=== PATIENT | male | born 1985 | race Caucasian/White ===

== ENCOUNTER 2020-06-11 10:56 | Outpatient (REF) | payer SELFPAY | END 2020-06-11 10:57 | disposition home or self-care (01) | LOC: HO.LAB 10:56 | PROVIDERS: Visit Provider Internal Medicine | DX: Z20.828 Contact with and (suspected) exposure to other viral communicable diseases (principal) | CPT/HCPCS: C9803; U0003 ==

== ENCOUNTER 2025-01-29 21:50 | Emergency (ER) | payer MEDICAID, SELFPAY ==
--- NOTE | ~2025-01-29 | XR_ITS ---
CLINICAL HISTORY: pain, fall 3 view, pelvis and right hip Comparison: None provided Findings: The bones are intact. The soft tissues are unremarkable. IMPRESSION: No acute findings. This document has been electronically signed by: Aftab Jain MD on 01/30/2025 01:39:28
--- NOTE | ~2025-01-29 | XR_ITS ---
CLINICAL HISTORY: pain fall 4 view right shoulder Comparison: None provided Findings: Bones intact. No dislocations. No erosions. No radiopaque foreign body. IMPRESSION: 1. No acute findings This document has been electronically signed by: Aftab Jain MD on 01/29/2025 22:45:06
[2025-01-29 21:55] VITALS: BP 125/66; PULSE 86; RESP 20; TEMP 36.6; O2SAT 97; BMI 27.3
[2025-01-29 22:43] LABS: MANUAL DIFF FLAG NO
[2025-01-29 22:45] LABS: Hematocrit 43.0 % (42.0-52.0); Hemoglobin 15.3 g/dl (14.0-18.0); Imm Gran Abs Auto 0.01 X10*3/uL (0.00-0.03); Imm Gran Pct Auto 0.2 % (0.0-0.4); Lymphocytes Absolute Auto 1.6 X10*3/uL (1.2-4.9); Mean Corpuscular HGB Conc 35.6 g/dl (31.0-36.0); Mean Corpuscular Hemoglobin 31.7 pg (27.0-33.0); Mean Corpuscular Volume 89.2 fL (80.0-98.0); NRBC Abs Auto 0.000 X10*3/uL (0.0-0.012); NRBC Pct Auto 0.0 /100WBC (0.0-0.2); Platelet Count 178 X10*3/uL (160-400); Red Blood Count 4.82 X10*6/uL (4.60-5.80); White Blood Count 4.7 X10*3/uL (4.8-10.8)
[2025-01-29 22:46] LABS: Appearance Urine Clear; Glucose Urine UA >=1000 mg/dL (Negative); PH 5.0 (5.0-9.0); Specific Gravity - Urine >= 1.030 (1.005-1.025); UMIC TRIGGER UACC YES
[2025-01-29 23:07] LABS: Alanine Aminotransferase 25 U/L (0-40); Albumin Level 4.0 g/dL (3.5-5.0); Alkaline Phosphatase 102 U/L (39-117); Anion Gap 14 (12-20); Aspartate Amino Transferase 14 U/L (5-37); Blood Urea Nitrogen 17 mg/dL (9-16); Calcium 9.1 mg/dL (8.4-10.2); Carbon Dioxide 22 mmol/L (22-29); Chloride 99 mmol/L (96-108); Creatinine Clr Calc Pharmacy 107.8; Estimated Glomerular Filt Rate > 60; Lipase 67 U/L (8-78); Potassium 4.1 mmol/L (3.3-5.1); Sodium 131 mmol/L (135-145); Total Protein 6.9 g/dL (6.5-8.0)
[2025-01-29 23:55] VITALS: BP 116/81; PULSE 70; RESP 18; TEMP 36.5; O2SAT 96
--- NOTE | 2025-01-29 23:59 | PC.NURSE ---
Patient stating he fell yesterday playing basketball with his son, contusion on right hip noted. Patient also has a complaint of right shoulder pain but it is lesser than hip. Hip mostly hurts while sitting down, especially on toliet. Pain level is noted to be 8/10. t resting comfortably in stretcher, RR even unlabored, even chest rise and fall. Awaiting provider for plan of care. Call rios in reach, able to make needs known. Previous ambulated to bathroom with a steady gait. Alert and oriented x 4.
--- NOTE | 2025-01-30 00:11 | PC.NURSE ---
Asked patient if he has any dx of DM, he states he does not.
[2025-01-30 00:51] LABS: Glucose, Whole Blood 460 mg/dL (60-115)
[2025-01-30 01:35] VITALS: BP 129/80; PULSE 71; RESP 17; TEMP 36.7; O2SAT 98
--- NOTE | 2025-01-30 01:42 | ED.GENADULT ---
HPI - General Adult General Chief complaint: Back Pain/Injury Stated complaint: fell yesterday, lot of pain Time Seen by Provider: 01/30/25 00:57 Source: patient Mode of arrival: ambulatory Limitations: no limitations History of Present Illness ED Provider: Dr. Faye Saini HPI narrative: Patient comes to the emergency room complaining of left-sided shoulder pain and left-sided hip pain. Patient states that yesterday he was playing basketball with his kids, patient states that he jumped and fell on his right side. Patient complaining of acute on chronic right shoulder pain and new hip pain. Patient states that he is able to walk without any difficulty. Related Data Previous Rx's ?Medication ?Instructions ?Recorded metformin 1,000 mg tablet 1,000 mg PO BID #90 tabs 01/30/25 Allergies Allergy/AdvReac Type Severity Reaction Status Date / Time Unable to Assess Allergy Verified 01/29/25 22:01 Review of Systems Review of Systems: Constitutional : No Weight loss, No Fever, No Chills, No Night Sweats, No Fatigue, No Malaise ENT/Mouth : No Hearing loss, No Ear Pain, No Nasal Congestion, No Sinus Pain, No Hoarseness, No sore throat, No Rhinorrhea, No Swallowing Difficulty Eyes: No Eye Pain, No Swelling, No Redness, No Foreign Body, No Discharge, No Vision Changes Cardiovascular : No Chest Pain, No SOB, No Dyspnea on Exertion, No Orthopnea, No Edema, No Palpitations Respiratory : No Cough, No Sputum, No Wheezing, No Smoke Exposure, No Dyspnea Gastrointestinal : No Nausea, No Vomiting, No Diarrhea, No Constipation, No abdominal Pain, No Hematochezia, No Melena Genitourinary : no irregular bleeding, No Dysuria, No Urinary Frequency, No Hematuria, No Urinary Incontinence, No Urgency, No Flank Pain, No Urinary Flow Changes, No Hesitancy Musculoskeletal : Complaining of right hip and right shoulder pain Skin : No Skin Lesions, No rash Neuro : No Weakness, No Numbness, No Paresthesias, No Loss of Consciousness, No Dizziness, No Headache Psych : No Anxiety/Panic, No Depression, No SI/HI/AH/VH, No Social Issues, Heme/Lymph: No Bruising, No Bleeding,No Lymphadenopathy Endocrine : Complaining of polyuria and polydipsia, No Temperature Intolerance PMFSH Social History Social History Use of substances other than those prescribed or required for medical reasons: No Advance Directives: No Advance Directives Information Provided: Yes Do you have a plan to hurt others: No Plan Physical Exam ED Exam Exam: Appearance: Alert. Oriented X3. No acute distress. Eyes: Pupils equal, round and reactive to light. ENT: Pharynx normal. Neck: Normal inspection. Neck supple. No lymph nodes noted. No crepitus CVS: Normal heart rate and rhythm. Pulses normal. Normal S1 and S2 Respiratory: No respiratory distress. Breath sounds normal. No Wheezing. No rales Abdomen: Soft and nontender. No rigidity. No distention. Skin: Skin warm and dry. Normal skin color. Normal skin turgor. Extremities: No lower extremity edema. No Lacerations. No Rash. Patient is able to fully abduct his left and right arms to 180 degrees Neuro: Oriented X 3. No motor deficit. No sensory deficit. Moving all extremities. No slurred speech. CN 2 through 12 grossly intact Psych: calm, cooperative, normal affect Vital Signs: Vital Signs - 24 hr 01/29/25 21:55 01/29/25 23:55 01/30/25 01:35 Temperature 97.9 F 97.7 F 98.0 F Pulse Rate 86 70 71 Respiratory Rate 20 18 17 Blood Pressure 125/66 116/81 129/80 Pulse Oximetry 97 96 98 Oxygen Delivery Method Room Air Room Air Room Air BMI result Body Mass Index 27.3 Course Course Course Narrative: Patient complaining of musculoskeletal pain. On review of systems, patient mentioned that he has been urinating and drinking a lot of fluids Medical Decision Making Medical Decision Making MDM Narrative: Hip x-ray and shoulder x-ray tetanus show any acute abnormalities. My interpretation of labs: No significant abnormality in patient's hematology. However, in patient's chemistry, patient has a sodium of 131 secondary to a glucose of 657. Normal LFTs. I discussed with the patient his glucose level. Patient states that he has never been told diabetic he still does not believe he is diabetic. Patient states that he ate a lot and that is why he is diabetic. I asked the patient if on top of pole urine polydipsia, if he has had any blurred vision and states that he does but he believes it is because he needs glasses. Overall, patient is in complete denial that his diabetic now. I discussed with the patient the long-term risks of uncontrolled glucose. I discussed with the patient that at this time, I recommend getting him some fluids, small dose of insulin and get his glucose at a reasonable level and start him on oral medications to he sees his PCP. Patient declined, patient states that he is not diabetic and does not need that. Patient states that he will think about it and eventually we will talk to his primary care physician. I had a prolonged conversation with the patient. However, he declined any further treatment. Differential Diagnosis Differential Diagnoses: The differential diagnosis associated with the presentation includes (Shoulder contusion, dislocation, fracture, hip contusion, new onset diabetes) Admission/Observation Consideration of admission/observation: Escalation of care including admission/observation considered Lab Data MDM Lab Attestation statement: I reviewed the patient's lab results. 01/29/25 22:35 01/29/25 22:35 Labs: Lab Results 01/29/25 01/30/25 Range/Units 22:35 00:46 WBC 4.7 L (4.8-10.8) X10*3/uL RBC 4.82 (4.60-5.80) X10*6/uL Hgb 15.3 (14.0-18.0) g/dl Hct 43.0 (42.0-52.0) % MCV 89.2 (80.0-98.0) fL MCH 31.7 (27.0-33.0) pg MCHC 35.6 (31.0-36.0) g/dl RDW 12.2 (11.0-16.0) % Plt Count 178 (160-400) X10*3/uL MPV 12.7 H (9.4-12.4) fL Immature Gran % (Auto) 0.2 (0.0-0.4) % Neut % (Auto) 52.4 (45-73) % Lymph % (Auto) 34.2 (20-40) % Summers % (Auto) 10.1 (2-11) % Eos % (Auto) 2.2 (0-4) % Baso % (Auto) 0.9 (0-2) % Lymph # (Auto) 1.6 (1.2-4.9) X10*3/uL Summers # (Auto) 0.5 (0.1-1.2) X10*3/uL Eos # (Auto) 0.1 (0.0-0.4) X10*3/uL Baso # (Auto) 0.0 (0.0-0.2) X10*3/uL Abs Immat Gran (auto) 0.01 (0.00-0.03) X10*3/uL Absolute Neuts (auto) 2.4 (2.0-8.3) x10*3/uL Absolute Nucleated RBC 0.000 (0.0-0.012) X10*3/uL Nucleated RBC % (auto) 0.0 (0.0-0.2) /100WBC Sodium 131 L (135-145) mmol/L Potassium 4.1 (3.3-5.1) mmol/L Chloride 99 (96-108) mmol/L Carbon Dioxide 22 (22-29) mmol/L Anion Gap 14 (12-20) BUN 17 H (9-16) mg/dL Creatinine 1.05 (0.5-1.4) mg/dL Estim Creat Clear Calc 107.8 Estimated GFR > 60 POC Glucose 460 H* (60-115) mg/dL Random Glucose 657 H* (60-115) mg/dL Calcium 9.1 (8.4-10.2) mg/dL Total Bilirubin 0.5 (0.0-1.0) mg/dL Direct Bilirubin 0.1 (0.0-0.5) mg/dL AST 14 (5-37) U/L ALT 25 (0-40) U/L Alkaline Phosphatase 102 (39-117) U/L Total Protein 6.9 (6.5-8.0) g/dL Albumin 4.0 (3.5-5.0) g/dL Lipase 67 (8-78) U/L Urine Color Yellow Urine Appearance Clear Urine pH 5.0 (5.0-9.0) Ur Specific [place] >= 1.030 H (1.005-1.025) Urine Protein Negative (Neg-Trace) mg/dL Urine Glucose (UA) >=1000 H (Negative) mg/dL Urine Ketones Negative (Negative) mg/dL Urine Blood Negative (Negative) Urine Nitrite Negative (Negative) Ur Leukocyte Esterase Negative (Negative) Urine RBC 0-2 (0-2) /HPF Urine WBC 0-5 (0-5) /HPF Ur Squamous Epith Cells 0-2 (0-2) /HPF Urine Bacteria None Seen (None Seen) Hyaline Casts 0-2 (0-2) /LPF Independent Interpretation I performed an independent interpretation of an: Plain X-Ray Radiology Impression Discussion of test interpretation with radiology: I have reviewed the radiologist's reading. Radiologist Impression: Findings: The bones are intact. The soft tissues are unremarkable. IMPRESSION: No acute findings. Bones intact. No dislocations. No erosions. No radiopaque foreign body. IMPRESSION: 1. No acute findings Critical Care Time Critical Care Time Critical Care Time: Yes Total Critical Care Time: 60 Attestation: I have personally provided critical care time. Time includes review of lab data, radiology results, discussion with consultants, and monitoring for potential decompensation. Intervention performed as documented. Discharge Plan Discharge Clinical Impression: Diabetes mellitus, new onset, Contusion of shoulder, Contusion of hip Patient Disposition: Left Against Medical Advice Instructions: Contusion in Adults (ED), Diabetes and Nutrition (ED), Diabetes and Exercise (ED) Additional Instructions: Now you are a diabetic. Please follow-up with your primary care physician tomorrow. If you have any worsening or new symptoms, please return to the emergency room or call 911 Prescriptions: New metformin 1,000 mg tablet 1,000 mg PO BID Qty: 90 0RF Rx Instructions: For the 1st week, take half tablet (500 mg) p.o. b.i.d. then start taking 1 tablet b.i.d. Print Language: Luxembourgish
[2025-01-30 02:10] VITALS: BP 129/80; PULSE 71; RESP 17; TEMP 36.7; O2SAT 98
== END 2025-01-30 02:11 | disposition left against medical advice (07) ==
PROVIDERS: Emergency Provider Emergency Medicine
DX: S40.011A Contusion of right shoulder, initial encounter (principal); S70.01XA Contusion of right hip, initial encounter; E11.9 Type 2 diabetes mellitus without complications; W01.0XXA Fall on same level from slipping, tripping and stumbling without subsequent striking against object, initial encounter; Y93.67 Activity, basketball; Y92.9 Unspecified place or not applicable; Y99.9 Unspecified external cause status
CPT/HCPCS: 36415; 73030; 73502; 80048; 80076; 81001; 82947; 83690; 85025; 99283; 99284

== ENCOUNTER → 2025-01-29 22:05 | Outpatient (BNV) | payer MEDICAID, SELFPAY | PROVIDERS: Visit Provider Radiology Diagnostic Radiology | DX: M25.511 Pain in right shoulder (principal); W19.XXXA Unspecified fall, initial encounter | CPT/HCPCS: 73030 ==

== ENCOUNTER → 2025-01-30 01:07 | Outpatient (BNV) | payer MEDICAID, SELFPAY | PROVIDERS: Emergency Provider Emergency Medicine; Visit Provider Radiology Diagnostic Radiology | DX: M25.551 Pain in right hip (principal) | CPT/HCPCS: 73502 ==

== ENCOUNTER 2025-03-18 14:20 | Outpatient (REF) | payer MEDICAID, SELFPAY ==
--- OUTSIDE RECORDS SUMMARY | 2025-03-18 15:44 | XMS_ITS | Encounter Summary ---
Author Organization [employer] Address [address] [place] [address] Care Team Providers Care Apartment Maintenance Manager Name Role Phone Unavailable Primary Care Provider Unavailabl e Encounter Details Date Type Department Care Team ([facility] st Contact Info) Description 03/13/2025 Telephone [facility] MEDICINE [address] [place], [place] [phone] Ino Tiwari MD [address] [place] [address] Social History Tobacco Use Types Packs/Day Years Used Date Smoking Tobacco: Never Assessed Sex and Gender Information Value Date Recorded Sex Assigned at Male 04/18/2022 10:29 AM EDT Legal Sex Male 10:29 AM EDT Gender Identity Male 03/04/2025 5:49 PM EDT Sexual Orientation Don't know 03/04/2025 5: 49 PM EDT documented as of this encounter Miscellaneous Notes * Telephone Encounter - Yolanda Mosquera - 03/13/2025 2:37 PM EDT Outgoing 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 No answer. documented in this encounter Plan of Treatment Not on file documented as of this encounter Visit Diagnoses Not on filedocumented in this encounter
--- OUTSIDE RECORDS SUMMARY | 2025-03-18 15:44 | XMS_ITS | Clinical Summary ---
Author Organization [employer] Address [address] [place] [address] [address] [place] [address] Care Team Providers Care Licensed Aircraft Maintenance Engineer Name Role Phone Unavailable Primary Care Provider Unavailabl e Allergies No known active allergies Medications metFORMIN (Glucophage) 1000 MG tabletIndicati ons:Type 2 diabetes mellitus with hyperglycemia, without long-term current use of insulin (HCC) Take 1 tablet (1,000 mg) by mouth with breakfast and with evening meal. 60 tablet 2 03/04/20 25 025 Active pen needle 32G x 4 mm miscIndication s:Type 2 diabetes mellitus with hyperglycemia, without long-term current use of insulin (HCC) Use as instructed 100 each 1 03/04/20 25 Active Alcohol Swabs (Alcohol Pads) 70 % padsIndication s:Type 2 diabetes mellitus with hyperglycemia, without long-term current use of insulin (HCC) Use as directed on skin 100 each 1 03/04/20 25 Active Blood Glucose Monitoring Suppl (FreeStyle [place] Lite) w/Device kitIndications :Type 2 diabetes mellitus with hyperglycemia, without long-term current use of insulin (HCC) Use to test blood sugar bid dx dm 1 kit 03/04/20 25 Active glucose blood (FREESTYLE LITE) test stripIndicatio ns:Type 2 diabetes mellitus with hyperglycemia, without long-term current use of insulin (HCC) Use bid. Dx diabetes 100 each 1 03/04/20 25 Active FreeStyle lancetsIndicat ions:Type 2 diabetes mellitus with hyperglycemia, without long-term current use of insulin (HCC) 1 each by Other route if needed in the morning and at bedtime (To check BS). Use bid, dx type 2 diabetes 100 each 1 03/04/20 25 025 Active insulin glargine (Lantus) 100 UNIT/ML injectionIndic ations:Type 2 diabetes mellitus with hyperglycemia, without long-term current use of insulin (HCC) Inject 15 Units under the skin at bedtime. (DOSE INCREASED FROM 10 UNITS DAILY) 10 mL 1 03/12/20 25 025 Active insulin glargine (Lantus) 100 UNIT/ML injectionIndic ations:Type 2 diabetes mellitus with hyperglycemia, without long-term current use of insulin (HCC) Inject 10 Units under the skin at bedtime. (FIRST TIME INSULIN USER; PLEASE PROVIDE TEACHING) 10 mL 03/04/20 25 025 Discontinued(Re order (will not trigger notification to Pharmacy)) Encounters Date Type Department Care Team Description 03/13/2025 Telephone [facility] MEDICINE [address] [place] [phone] Ino Tiwari MD 03/12/2025 6:20 PM EDT Office Visit [facility] [address] [place] [phone] Dhruv Mars MD Type 2 diabetes mellitus with hyperglycemia, without long-term current use of insulin (CMS/HCC) (Primary Dx) 03/12/2025 Telephone [facility] [address] [place] [phone] Dhruv Mars MD Diabetic Eye Exam (New diagnosis of type 2 DM. Has not have an eye exam for several years.) 03/12/2025 Travel 03/04/2025 7:00 PM EDT Office Visit [facility] [address] [place] [phone] Dhruv Mars MD Type 2 diabetes mellitus with hyperglycemia, without long-term current use of insulin (CMS/HCC) (Primary Dx) 03/04/2025 Travel 01/31/2025 Telephone [facility] [address] [place] [phone] Ino Tiwari MD Appointment Request from Last 3 Months Social History Tobacco Use Types Packs/Day Years Used Date Smoking Tobacco: Never Assessed Sex and Gender Information Value Date Recorded Sex Assigned at Male 04/18/2022 10:29 AM EDT Legal Sex Male 10:29 AM EDT Gender Identity Male 03/04/2025 5:49 PM EDT Sexual Orientation Don't know 03/04/2025 5: 49 PM EDT Last Filed Vital Signs Vital Sign Reading Time Taken Comments Blood Pressure 119/82 03/12/2025 6:17 PM EDT Pulse 76 03/12/2025 6:17 PM EDT Temperature 36.7 C (98 F) 03/12/2025 6:17 PM EDT Respiratory Rate 15 03/12/2025 6:17 PM EDT Oxygen Saturation 98% 03/12/2025 6:17 PM EDT Inhaled Oxygen Concentration - - Weight 95.3 kg (210 lb) 03/12/2025 6:17 PM EDT Height - - Body Mass Index - - Plan of Treatment Health Maintenance Due Date Last Done Comments Depression Screening 1986 HIV Screening 1986 Lipid Panel 1986 SDOH Screening 1986 Disability Screening 1986 Diabetes: Foot Exam 1996 Eye Exam 1996 Alcohol/Substance Use Screening 1998 Tobacco Screening 1998 Family Planning (PISQ) 2001 HPV Vaccines (1 - Male 3-dos e series) 2001 Hepatitis C Screening 2004 DTaP/Tdap/Td Vaccines (1 - Tdap) 2005 Diabetes: Urine Protein Screening 2005 Hepatitis B Vaccines (1 of 3 - 19+ 3-dose series) 2005 Pneumococcal Vaccine: Pediat rics (0 to 5 Years) and At-Risk Patients (6 to 49) Years (1 of 2 - PCV) 2005 COVID-19 Vaccine (1 - 2023-2 5 season) 2025 Influenza Vaccine (#1) 2025 Diabetes: Hemoglobin A1C 06/03/2025 03/04/2025 Zoster Vaccines (1 of 2) 2036 RSV Patients and Pa tients Aged 60 years or older (1 - 1-dose 75+ series) 2061 HIB Vaccines Aged Out No longer eligi ble based on patient's age to complete this topic Hepatitis A Vaccines Aged Out No long er eligible based on patient's age to complete this topic IPV Vaccines Aged Out No longer eligi ble based on patient's age to complete this topic Meningococcal B Vaccine Aged Out No l onger eligible based on patient's age to complete this topic Meningococcal Vaccine Aged Out No yuliet maura eligible based on patient's age to complete this topic RSV under 20 months Aged Out No longe r eligible based on patient's age to complete this topic Rotavirus Vaccines Aged Out No longer eligible based on patient's age to complete this topic Procedures Procedure Name Priority Date/Time Associated Diagnosis Comments POCT GLYCATED HEMOGLOBIN, TOTAL Routine 03/04/2025 7:41 PM EDT Type 2 diabetes mellitus with hyperglycemia, without long-term current use of insulin ([facility]) POCT URINALYSIS DIPSTICK Routine 03/04/2025 7:37 PM EDT Type 2 diabetes mellitus with hyperglycemia, without long-term current use of insulin ([facility]) POCT GLUCOSE Routine 03/04/2025 7:37 PM EDT Type 2 diabetes mellitus with hyperglycemia, without long-term current use of insulin ([facility]) from Last 3 Months Results * (ABNORMAL) POCT Hgb A1c (03/04/2025 7:41 PM EDT) Pathologist [facility] Hemoglobin A1C 14.0(A) 4.0 - 5.7 % QC Media Lot # [id number] Lot# Expiration Date 22,627 Blood 03/04/2025 7:41 PM EDT Dhruv Mars MD POINT OF CARE TEST ENTER/EDIT OR DERABLES Final Result * (ABNORMAL) POCT Glucose (03/04/2025 7:37 PM EDT) Pathologist [facility] Glucose Blood, POC 290(A) 60 - 200 mg/dL QC Media Lot # [id number] Lot# Expiration Date 101,225 Blood Capillary blood specimen / Unknown 03/04/2025 7:37 PM EDT Dhruv Mars MD POINT OF CARE TEST ENTER/EDIT OR DERABLES Final Result * POCT Urinalysis (03/04/2025 7:37 PM EDT) Color, UA Yellow Clarity, UA Clear Glucose, UA 3+ 500+++ Bilirubin, UA Negative Ketones, UA Negative Spec Grav, UA 1.025 Blood, UA Negative Negative, None Detected pH, UA 6.0 Protein, UA Trace Comment:100mg Urobilinogen, UA 0.2 Leukocytes, UA Negative Negative, Rare, Trace Nitrite, UA Negative Negative, None Detected Appearance, UA clear QC Media Lot # [id number] Lot# Expiration Date 63, Urine 03/04/2025 7:37 PM EDT Dhruv Mars MD POINT OF CARE TEST ENTER/EDIT OR DERABLES Final Result from Last 3 Months [facility]
[2025-03-18 16:26] LABS: MANUAL DIFF FLAG NO
[2025-03-18 16:50] LABS: Alanine Aminotransferase 29 U/L (0-40); Albumin Level 3.9 g/dL (3.5-5.0); Alkaline Phosphatase 57 U/L (39-117); Anion Gap 10 (12-20); Aspartate Amino Transferase 23 U/L (5-37); Blood Urea Nitrogen 15 mg/dL (9-16); Calcium 8.6 mg/dL (8.4-10.2); Carbon Dioxide 27 mmol/L (22-29); Chloride 108 mmol/L (96-108); Cholesterol 169 mg/dL (<200); Estimated Glomerular Filt Rate > 60; HDL Cholesterol 48 mg/dL (>40); Potassium 3.8 mmol/L (3.3-5.1); Sodium 141 mmol/L (135-145); Total Protein 6.1 g/dL (6.5-8.0); Triglycerides 113 mg/dL (<150)
[2025-03-18 17:21] LABS: Microalbum/Creatinine Ratio Ur 103.9 ug/mg cr (<30)
[2025-03-18 17:39] LABS: Hematocrit 42.9 % (42.0-52.0); Hemoglobin 14.7 g/dl (14.0-18.0); Imm Gran Abs Auto 0.02 X10*3/uL (0.00-0.03); Imm Gran Pct Auto 0.4 % (0.0-0.4); Lymphocytes Absolute Auto 1.7 X10*3/uL (1.2-4.9); Mean Corpuscular HGB Conc 34.3 g/dl (31.0-36.0); Mean Corpuscular Hemoglobin 30.9 pg (27.0-33.0); Mean Corpuscular Volume 90.3 fL (80.0-98.0); NRBC Abs Auto 0.000 X10*3/uL (0.0-0.012); NRBC Pct Auto 0.0 /100WBC (0.0-0.2); Platelet Count 179 X10*3/uL (160-400); Red Blood Count 4.75 X10*6/uL (4.60-5.80); White Blood Count 5.1 X10*3/uL (4.8-10.8)
== END 2025-03-18 14:21 | disposition home or self-care (01) ==
LOC: HO.HHCL 14:20
PROVIDERS: Visit Provider Family Medicine
DX: E11.65 Type 2 diabetes mellitus with hyperglycemia (principal)
CPT/HCPCS: 36415; 80053; 80061; 82043; 82570; 85025